=== PATIENT | male | born 1960 | race Caucasian/White ===

== ENCOUNTER 2020-04-10 04:05 | Observation (INO) | payer OTHER, SELFPAY ==
[2020-04-10 04:05] VITALS: BP 140/75; PULSE 68; RESP 16; TEMP 36.4; O2SAT 98; BMI 29.0
--- NOTE | 2020-04-10 04:20 | ED_ITS ---
HPI - General Adult General Chief complaint: Abdominal Pain Stated complaint: SBO from [facility] Time Seen by Provider: 04/10/20 04:20 Source: patient and EMS Mode of arrival: EMS Limitations: no limitations History of Present Illness HPI narrative: 59-year-old male was transferred to our emergency department from [facility] after they discussed the case with General surgery secondary to the patient having CT scan findings consistent with a small-bowel obstruction. Patient states that approximately 24 hours ago he started having abdominal pain and abdominal distention. Some nausea no vomiting. No bowel changes. Has never had any abdominal surgeries in the past. Has never had a bowel obstruction in the past. Went to [facility] where he had blood work and a CT scan performed. Blood work shows a leukocytosis of 19. Normal kidney function. Normal lactate. Olivarez [address] a [address] scan of the abdomen pelvis which shows high-grade small-bowel obstruction and nu merous bilateral nonobstructing renal stones. Secondary to their lack of surgical services patient was transferred to this facility for evaluation. Patient arrived with an IV in place. Also has an NG tube in the right nares. He states he does feel somewhat better after the placement of the NG to. He does feel slightly distended. Patient also received pain medications and nausea medicine prior to arrival Related Data Allergies Allergy/AdvReac Type Severity Reaction Status Date / Time No Known Drug Allergies Allergy Verified 04/10/20 04:44 Review of Systems Constitutional Constitutional: Denies fever(s) Cardiovascular Cardiovascular: Denies chest pain and Denies dyspnea Respiratory Respiratory: Denies dyspnea Gastrointestinal Gastrointestinal: Denies melena, Reports bloating, Denies diarrhea, Reports nausea and Denies vomiting Genitourinary Genitourinary: Denies dysuria Genitourinary: Denies dysuria Musculoskeletal Musculoskeletal: Denies arthralgias and Denies myalgias Integumentary/Breasts Skin/Breast: Denies lesions and Denies rash Neurologic Neurologic: Denies behavioral changes Psychiatric Psychiatric: Denies behavioral changes Hematologic/Lymphatic Hematologic/Lymphatic: Denies easy bleeding and Denies easy bruising Allergic/Immunologic Allergic/Immunologic: Denies urticaria Patient History Medical History ADD (attention deficit disorder) (Acute) BPH (benign prostatic hyperplasia) (Acute) Chronic back pain (Acute) Erectile dysfunction (Acute) Gout (Acute) Hematuria (Acute) Hypertension (Acute) Insomnia (Acute) Osteoarthritis (Acute) Restless leg syndrome (Acute) Social History Smoking Status: Never smoker Exam Initial Vital Signs Initial Vital Signs: Vital Signs Temperature 97.6 F 04/10/20 04:05 Pulse Rate 68 04/10/20 04:05 Respiratory Rate 16 04/10/20 04:05 Blood Pressure 140/75 04/10/20 04:05 Pulse Oximetry 98 04/10/20 04:05 Const General: cooperative, comfortable and well developed Limitations: mental status not altered HENMT Head: normal to inspection and normocephalic Nose: other (NG-tube right nares) Resp Effort & Inspection: normal respiratory effort Auscultation: clear to auscultation bilaterally Cardio Rate: regular rate Rhythm: regular rhythm GI Inspection: distended Palpation: soft, No firm and No tender Skin Lesions: no lesions Rashes: no rashes Neuro General: patient alert, patient awake and patient oriented x3 Cognition: normal cognition Speech: speech normal Motor: muscle tone normal throughout Extrem General: normal to inspection and capillary refill normal Psych Appearance: grossly normal and well kempt Scores GCS Jane coma scale eye opening: Spontaneous Jane coma scale verbal response: Orientated [place] coma scale motor response: Obey commands Jane coma scale total score: 15 Course Orders Ordered: ED Orders 04/10/20 04:27 XR acute abdomen series Stat Sodium Chloride (Normal Saline 0.9%) 1,000 mls @ 125 mls/hr IV CONT IVANIA Vital Signs Vital signs: Vital Signs - 8 hr 04/10/20 04:05 Temperature 97.6 F Pulse Rate 68 Respiratory Rate 16 Blood Pressure 140/75 Pulse Oximetry 98 Medical Decision Making MDM Narrative Medical decision making narrative: Patient with known small-bowel obstruction. Has a leukocytosis and normal lactate and normal labs. These were reviewed from the transferring facility. His COVID-[address] scan reviewed. Discussed the case with Dr. Frye with General surgery who evaluated the patient in the emergency department. Plan of these to admit to the surgery service for further evaluation and treatment. Discharge Plan Departure Patient Disposition: Admitted As Inpatient Clinical Impression: SBO (small bowel obstruction) Discharge Date/Time: 04/10/20 04:42 Admit Date/Time: 04/10/20 04:41 Admit Provider: Landen Frye
--- NOTE | 2020-04-10 04:27 | DI.RAD.S_ITS ---
PROCEDURE: XR ACUTE ABDOMEN SERIES INDICATIONS: Small bowel obstruction TECHNIQUE: One view chest and two views of the abdomen were acquired. COMPARISON: None. FINDINGS: Surgical changes and devices: NG tube noted with tip projecting over the proximal stomach and side port in the distal esophagus. Chest: Lungs are clear. Heart size is normal. No pleural effusions. No pneumoperitoneum. Abdomen: Bowel gas pattern is normal. No suspicious calcifications. Visualized solid organ contours appear normal. Iodinated contrast material noted in the urinary bladder presumably related to recent CT scan. Bones: No suspicious bony lesions. IMPRESSION: 1. NG tube tip is in the proximal stomach with side port in the distal esophagus. Tube should be advanced several centimeters. 2. No dilated loops of bowel identified by plain film radiograph. Dictated by: Nicole Mchugh MD, PhD on 04/10/2020 at 7:32 Approved by: Nicole Mchugh MD, PhD on 04/10/2020 at 7:33
--- NOTE | 2020-04-10 04:40 | PC.NURSE ---
PT arrived with 14 Fr NG tube to R nare, pt requested removal of NG, NG removed at [address] Frye verbal order at bedside.
--- NOTE | 2020-04-10 04:48 | PM.HP.1 ---
History of Present Illness History of Present Illness Date Patient Seen: 04/10/20 Time Patient Seen: 04:50 Date of Onset of Symptoms: 04/09/20 Chief complaint: Appendicitis Narrative: The patient is gentleman who began to developed abdominal distention and pain. Began with late yesterday. He said his abdomen just kept expanding and getting bigger and bigger and bigger. He has never had this before. He had crampy abdominal pain. Nausea without vomiting. He stated that he had eaten a large number of pear apples. However the since transit was arranged he has had 2 large bowel movements including a very constipated stool followed by diarrhea and passed a large amount of gas. His abdominal pain has gone away and his abdomen is now softer and not distended like it was. Patient History Medical History ADD (attention deficit disorder) (Acute) BPH (benign prostatic hyperplasia) (Acute) Chronic back pain (Acute) Erectile dysfunction (Acute) Gout (Acute) Hematuria (Acute) Hypertension (Acute) Insomnia (Acute) Osteoarthritis (Acute) Restless leg syndrome (Acute) Surgical History Status post right knee replacement (Acute) Family & Social History Tobacco & Substance use: Smoking Status half a pack a day for many years alcohol intake frequency 0-2 drinks per day Substance Use Type does not use Meds Home Medications and Allergies Allergies Allergy/AdvReac Type Severity Reaction Status Date / Time No Known Drug Allergies Allergy Verified 04/10/20 04:44 Review of Systems Review of Systems Narrative: Patient denies pain is eyes double vision earache sore throats or trouble swallowing. No tooth aches. No cough cold or asthma. No chest pain or heart problems or murmurs. No black or bloody bowel movements. No seizures or blackouts. No anxiety or depression. He does have chronic back pain in uses high dose narcotics to control it. He does have some difficulty urinating and uses Flomax. He has sleep apnea and uses a BiPAP machine and also takes Adderall for it. He uses Ambien to sleep. He is also on gabapentin for his back symptoms. Does not bruise or bleed easily. Exam Vital Signs (past 8 hours): - 04/10/20 04:05 Temperature 97.6 F Pulse Rate 68 Respiratory Rate 16 Blood Pressure 140/75 Pulse Oximetry 98 Oxygen Delivery Method Room Air Narrative Exam Narrative: Cooperative no apparent distress. Deeply bronze skin. Eyes are nonicteric. Pupils equal round reactive to light. Conjunctivae are pink. Ears without lesion. Nasal septum midline without polyps. Oral mucosa pink, a little dry. No open lesions no splits in his lips. I feel no nodes in the neck or supraclavicular areas. Trachea is midline mobile. Thyroid is not enlarged. There are no palpable masses in the neck or thyroid lungs are clear to auscultation without rales or rhonchi. Equal percussion. He looks a little barrel-chested. Heart regular rate and rhythm without murmur gallop. No heave lift or thrill. No bruit in the neck. Abdomen is protuberant soft. There is no tenderness. He has a diastasis recti he and appears to have a fairly broad umbilical hernia. Easily reducible and nontender. No inguinal hernias appreciated. His lower extremities are hairless. He has a scar in his right knee. Patient is alert and oriented x3. Speech rate and content are appropriate. Affect is appropriate. Objective Imaging CT scan - abdomen: My impression: CT of the abdomen from [facility] shows evidence of a small-bowel obstruction. There is a distinct transition point in collapse of the bowel distal. Abdominal x-ray: My impression: X-rays repeated here given his history of multiple bowel movements and passing flatus. He has a very normal appearing acute abdominal film. There is no colonic distension and there is no extensive gas in his small bowel. Labs Labs: Patient had a marked elevation of his white blood cell count at 19 at [facility]. Electrolytes were okay. Assessment & Plan Assessment & Plan narrative: Patient with a history physical exam and CT scan from [facility] consistent with a small-bowel obstruction. However since that evaluation his status has completely changed. He has begun having passage of stool and flatus in his repeat x-rays are rather normal in appearance. Clinically he is improved as well with a nontender very soft abdomen that he states is less distended than it had been. Will admit for observation. NG tube has been removed as there is nothing in his stomach and he has this clinical appear improvement of his intestine x-rays and function. Patient has chronic back pain and therefore will continue his use of gabapentin and oxycodone. Patient has sleep apnea and will continue the use of his Adderall. He did not bring his BiPAP machine but says he does fine if he lays on his side. May need to supplement. Patient has of obstructive urinary symptoms from BPH and will continue his Flomax. Chronic tobacco use. Will provided educational materials etc. COVID-19 COVID-19 status: Negative Result date/Date tested (Pos, Neg/Pending): 04/10/20
[2020-04-10] MEDS: SODIUM CHLORIDE 0.9% 1,000 ML 125 ML IV (04:49)
[2020-04-10 05:06] VITALS: BMI 28.8
[2020-04-10 05:22] VITALS: BP 128/76; PULSE 58; RESP 20; TEMP 36.6; O2SAT 97
[2020-04-10] MEDS: LACTATED RINGERS 1,000 ML 150 ML IV (06:09)
[2020-04-10 06:24] LABS: Add Manual Diff / Slide Review NO; Basophils Absolute Auto 100 /uL (0-100); Basophils Percent Auto 0.5 % (0-2); Eosinophils Absolute Auto 100 /uL (0-450); Hematocrit 46.7 % (41-53); Hemoglobin 15.8 g/dL (13.5-17.5); Lymphocytes Absolute Auto 1700 /uL (1100-4500); Lymphocytes Percent Auto 14.6 % (25-40); Mean Corpuscular HGB Conc 33.8 % (30-36); Mean Corpuscular Hemoglobin 31.6 PG (26-34); Mean Corpuscular Volume 93.5 fL (80-100); Monocytes Absolute Auto 900 /uL (0-900); Monocytes Percent Auto 7.7 % (3-14); Neutrophils Absolute Auto 9000 /uL (1500-7000); Neutrophils Percent Auto 76.2 % (50-75); Platelet Count 219 X10^3/uL (150-400); Red Cell Distribution Width 13.4 % (11.6-14.8); White Blood Cell Count 11.8 X10^3/uL (4.5-11.0)
[2020-04-10 06:34] LABS: BUN Creatinine Ratio 15.6 (6-22); Blood Urea Nitrogen 15 mg/dL (9-20); Calcium 8.2 mg/dL (8.4-10.2); Carbon Dioxide 32 mmol/L (22-32); Chloride 104 mmol/L (98-107); Estimated Glomerular Filt Rate > 60.0 mL/min (>60); Glucose 95 mg/dL (80-110); HEMOLYSIS 19 (0-50); Potassium 3.9 mmol/L (3.4-5.1); Sodium 138 mmol/L (137-145)
[2020-04-10] MEDS: OXYCODONE IR 5 MG TABLET 15 MG PO (06:42)
[2020-04-10 09:00] VITALS: BP 136/78; PULSE 58; RESP 18; TEMP 36.6; O2SAT 96
[2020-04-10] MEDS: GABAPENTIN 300 MG CAPSULE PO ×2 (10:14→15:21)
[2020-04-10] MEDS: TAMSULOSIN 0.4 MG CAPSULE PO (10:14)
--- NOTE | 2020-04-10 11:29 | PC.NURSE ---
Pt denies pain to abdm, n/v. Abdm is soft, non tender. He is currently NPO. BT are active in all four quadrants. Pt reports eating multiple apple pears and several granola bars w/o drinking water with eating yesterday before having his abdominal pain. He has been instructed, in the future, to be careful when ingesting quantities of high fiber foods and to drink fluids while doing so. Pt reports that he feels much relieved after his multiple bowel movements yesterday. He has expressed interest in eating and weather he might be able to discharge home.
--- NOTE | 2020-04-10 11:57 | CM.IDA ---
Initial DCP Assessment Note Patient is a 59 yo male, resident of [place]. Patient arrives from [facility] w/SBO, now resolved. PCP: Luis Nunez Payer: [facility] MCR Met w/patient and spouse this morning, introduced role. Patient and spouse ready for patient's DC, SBO has resolved and patient feeling much better. 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 Awaiting physician for DC P: DC home w/family via pov DIANE Aburto Discharge Planning/Care Management CM Discharge Assessment Start: 04/10/20 11:56 Freq: Status: Active Protocol: Document 04/10/20 11:56 JADYN (Rec: 04/10/20 11:57 JADYN [id number]) Discharge Planning Assessment Assigned Body Specialist DIANE Caldera DPOA/Assigned Designee Name Alice Suarez, spouse Contact Information [phone] Advance Directives? No History Provided By Patient,Significant Other Prior Living Arrangements House Household Members spouse Type of transporation used prior to Drives own vehicle admit Independent with ADL's Yes Is patient alert and oriented? Yes Barriers to Discharge No Discharge Plan Home Transportation Arrangement Spouse Referrals Initiated None needed
[2020-04-10 13:00] VITALS: BP 140/77; PULSE 61; RESP 17; TEMP 36.4; O2SAT 96
[2020-04-10 16:15] VITALS: BP 142/85; PULSE 65; RESP 18; TEMP 36.6; O2SAT 97
--- NOTE | 2020-04-10 16:58 | P.DS_ITS ---
History of Present Illness History of Present Illness Chief complaint: Appendicitis Narrative: The patient is gentleman who began to developed abdominal distention and pain. Began with late yesterday. He said his abdomen just kept expanding and getting bigger and bigger and bigger. He has never had this before. He had crampy abdominal pain. Nausea without vomiting. He stated that he had eaten a large number of pear apples. However the since transit was arranged he has had 2 large bowel movements including a very constipated stool followed by diarrhea and passed a large amount of gas. His abdominal pain has gone away and his abdomen is now softer and not distended like it was. Discharge Providers Provider Date of admission: 04/10/20 04:41 Discharge Date: 04/10/20 Primary care physician: Luis Nunez MD Consults: 04/10/20 04:51 Consult to General Surgery Stat Comment: Consulting Provider: Landen Frye Reason for consultation: Small-bowel obstruction Has provider been notified: Yes Discharge provider: Landen Frye MD Summary Hospital Course Discharge Diagnosis: Small bowel obstruction acute resolved Sleep apnea chronic Hypertension chronic Elevated cholesterol chronic Chronic back pain Benign prostatic hypertrophy with urinary tract symptoms chronic Obesity chronic BMI of 29. Umbilical hernia chronic reducible Hospital Course: Patient was admitted he had a 2 or more bowel movement just prior to arrival in our emergency room in transit from [facility]. He was also passing flatus. Repeat x-ray showed marked improvement in his gas pattern of his intestine. However he did have a white count of 19 and because of this was brought in for observation. Repeat white blood cell count was 11 several hours after admission. He tolerated p.o. liquids and ultimately a general diet and was discharged to follow up as needed with his primary care provider Exam Vital Signs (past 8 hours): - 04/10/20 09:00 04/10/20 13:00 04/10/20 16:15 Temperature 97.8 F 97.5 F L 97.9 F Pulse Rate 58 L 61 65 Respiratory Rate 18 17 18 Blood Pressure 136/78 140/77 142/85 H Pulse Oximetry 96 96 97 Oxygen Delivery Method Room Air Oxygen Flow Rate 0 Narrative Exam Narrative: Lungs are clear to auscultation. Abdomen is protuberant soft nontender without mass. Patient is alert and pleasant. He believes he is back to baseline. Objective Labs Result Diagrams: 04/10/20 06:15 04/10/20 06:15 Labs: Laboratory Results - last 24 hr 04/10/20 04/10/20 06:15 06:15 WBC 11.8 H RBC 5.00 Hgb 15.8 Hct 46.7 MCV 93.5 MCH 31.6 MCHC 33.8 RDW 13.4 Plt Count 219 Neut % (Auto) 76.2 H Lymph % (Auto) 14.6 L Meeker % (Auto) 7.7 Eos % (Auto) 1.0 L Baso % (Auto) 0.5 Neut # (Auto) 9000 H Lymph # (Auto) 1700 [place] # (Auto) 900 Eos # (Auto) 100 Baso # (Auto) 100 Sodium 138 Potassium 3.9 Chloride 104 Carbon Dioxide 32 BUN 15 Creatinine 0.96 Estimated GFR > 60.0 BUN/Creatinine Ratio 15.6 Glucose 95 Calcium 8.2 L Magnesium 2.0 Discharge Plan Discharge Plan Patient Disposition: Home Discharge comment: You had a bowel obstruction. While I am not certain the cause, I suspect that had to do with her diet. Try not to eat a large amount of any into adjustable foods that can cause intestinal blockage. Make sure you chew your food very well. If your symptoms return go back to the emergency room. Discharge orders & Medications Prescriptions: Continued ropinirole 2 mg Tablet 2 mg PO BEDTIME RF: 0 amlodipine [Norvasc] 5 mg Tablet 5 mg PO DAILY RF: 0 allopurinol 300 mg Tablet 300 mg PO DAILY RF: 0 gabapentin 300 mg Capsule 300 mg PO TID RF: 0 loratadine 10 mg Tablet 10 mg PO DAILY PRN (Reason: Allergy Symptoms) RF: 0 atorvastatin 10 mg Tablet 10 mg PO DAILY RF: 0 tamsulosin [Flomax] 0.4 mg Capsule 0.4 mg PO DAILY RF: 0 oxycodone 15 mg Tablet 15 mg PO Q6H PRN (Reason: Pain (Scale Score 4-6)) RF: 0 dextroamphetamine-amphetamine [Adderall] 20 mg Tablet 20 mg PO BID RF: 0 zolpidem [Ambien] 10 mg Tablet 10 mg PO BEDTIME PRN (Reason: Insomnia) RF: 0 docusate sodium 100 mg Capsule 100 mg PO DAILY PRN (Reason: Constipation) RF: 0 Diet/Activity/Treatments Diet: Diet as Tolerated Activity: No restrictions Discharge Data Primary Care Provider: Luis Nunez Attending Provider: Landen Frye Admit Date/Time: 04/10/20 04:41 Quality VTE Deep Vein Thrombosis/Pulmonary Embolism Present on Admission: No
--- NOTE | 2020-04-10 18:00 | PC.NURSE ---
Evening Shift/ Discharge Note- Patient D/C'ed home. Discharge instructions and education reviewed with patient and signed. IV line removed and bandage applied. Patient dressed and packed up all personal items. Patient taken via wheelchair to private car with all personal items, metting spouse at ER entrance.
--- NOTE | 2020-04-23 18:43 | PC.NURSE ---
Late Entry; LR infusion initiated 10/ at 06:09, discontinued at time of discharge 18:00.
== END 2020-04-10 18:00 | disposition home or self-care (01) ==
LOC: ED 04:41 → AC 04:42
PROVIDERS: Admitting Provider Specialist; Emergency Provider Emergency Medicine; PCP Family Medicine; Referring Provider Emergency Medicine; Visit Provider Specialist
DX: K56.699 Other intestinal obstruction unspecified as to partial versus complete obstruction (principal); R10.9 Unspecified abdominal pain; G47.33 Obstructive sleep apnea (adult) (pediatric); I10 Essential (primary) hypertension; E78.00 Pure hypercholesterolemia, unspecified; N40.1 Benign prostatic hyperplasia with lower urinary tract symptoms
CPT/HCPCS: 36415; 74022; 80048; 83735; 85025; 96360; 96361; 99234; 99283; 99284; G0378